=== PATIENT | male | born 1980 | race Two or more races ===

== ENCOUNTER 2022-03-15 14:59 | Emergency (ER) | payer OTHER ==
[~2022-03-15] VITALS: Ht 172.7 cm; Wt 85.3 kg
[2022-03-15] MEDS ORDERED: TAMS0.4C PO (19:46)
== END 2022-03-15 19:55 | disposition home or self-care (01) ==
LOC: ER 14:59
DX: N20.0 Calculus of kidney (principal)

== ENCOUNTER 2023-03-13 23:13 | Emergency (ER) | payer OTHER ==
[~2023-03-13] VITALS: Ht 165.1 cm; Wt 74.4 kg
[~2023-03-13 23:13] MED LIST: TAMS0.4C PO
[2023-03-14] MEDS ORDERED: PEPCID40 MG PO (03:22)
[2023-03-14] MEDS ORDERED: ONDANSETRON ODT4 MG PO (03:22)
== END 2023-03-14 03:32 ==
LOC: ER 23:13
DX: K29.60 Other gastritis without bleeding (principal)

== ENCOUNTER 2023-07-10 20:09 | Emergency (ER) | payer OTHER ==
[~2023-07-10] VITALS: Ht 162.6 cm; Wt 74.4 kg
[~2023-07-10 20:09] MED LIST changes: +ONDANSETRON ODT4 MG PO; +PEPCID40 MG PO
== END 2023-07-11 00:04 | disposition home or self-care (01) ==
LOC: ER 20:09
PROVIDERS: Emergency Medicine
DX: N20.2 Calculus of kidney with calculus of ureter (principal)